=== PATIENT | male | born 1955 | race Caucasian/White ===

== ENCOUNTER 2019-07-22 13:02 | Emergency (ER) | payer OTHER, MEDICAID, SELFPAY ==
[2019-07-22 13:06] VITALS: BP 160/89; PULSE 110; RESP 20; TEMP 36.6; O2SAT 98
--- NOTE | 2019-07-22 13:11 | DI.RAD.S_ITS ---
PROCEDURE: XR FINGER RT MIN 2V INDICATIONS: concern for infection r/t prior amputation, pain/swelling TECHNIQUE: AP hand, 2 views of the right first finger(s) acquired. COMPARISON: None. FINDINGS: Bones: No fractures or dislocations. No suspicious bony lesions. No osseous erosive changes. No periosteal reaction. The first distal phalange is absent compatible with reported prior amputation. Soft tissues: No suspicious soft tissue calcifications. IMPRESSION: No alli evidence of osteomyelitis. Plain film radiographs can be insensitive to osteomyelitis during the initial 15 days of the disease process. If there is clinical concern for osteomyelitis, then three-phase nuclear medicine bone scan should be considered for further evaluation. Dictated by: Norma Reardon MD, PhD on 07/22/2019 at 12:46 Approved by: Norma Reardon MD, PhD on 07/22/2019 at 12:47
--- NOTE | 2019-07-22 13:33 | PC.NURSE ---
Pt c/o white area on end of previously amputated right thumb. Pt states it has been there for 2 months. No fever. No overt swelling.
--- NOTE | 2019-07-22 13:46 | ED.EXTPRO ---
HPI - Extremity Problem <Sebastian Stout [facility] - Last Filed: 07/22/19 21:32> General Chief complaint: Extremity Problem,Nontraumatic Stated complaint: Lump in right thumb Time Seen by Provider: 07/22/19 13:22 Source: patient Mode of arrival: Ambulatory Limitations: no limitations History of Present Illness HPI Narrative: This is a 63-year-old gentleman, prior smoker, who presents to ED with foreign body sensation and discomfort on right thumb pad for last 3 months. Patient denies fever, redness, swelling, purulent discharge, warmth on affected site. Patient right dominant hand but writes with left hand. Patient thought he had a sliver on affected site and had tried to remove it by soaking in Epsom salt and picking on it but patient continues to feel discomfort when it is pressed hard on thumb pad and callus and would like an evaluation. Related Data Allergies Allergy/AdvReac Type Severity Reaction Status Date / Time Sulfa (Sulfonamide Allergy Verified 07/22/19 13:13 Antibiotics) Tetracyclines Allergy Verified 07/22/19 13:13 Review of Systems <Sebastian Stout [facility] - Last Filed: 07/22/19 21:32> Review of Systems ROS Unobtainable: All systems reviewed & are unremarkable except as noted in HPI and below Patient History <KARRIE BackP - Last Filed: 07/22/19 21:32> Substance Use Type: marijuana Exam <Sebastian Argelia [facility] Last Filed: 07/22/19 21:32> Narrative Exam Narrative: General appearance: well developed, well nourished, in no acute distress. Head: normocephalic, atraumatic, no scalp lesions, non-tender. Eye: pupil equal, round. EOMI. Nose: nares patent. Oral: mucosa moist. Neck/Thyroid: neck supple, full range of motion, no visible masses. Skin: Right thumb pad with small calleous growth. No erythema, edema, warmth, drainage noted. Heart: no clubbing, no cyanosis, no edema. Lungs: Breathing even and unlabored. No stridor. No accessory muscles used. Chest: normal shape and expansion. Abdomen: non-obese, non-distended. Neurologic: alert and oriented. Cognitive exam, [employer] and PNS grossly intact on informal exam. Psych: good eye contact, normal affect. 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) Details: normal to inspection, normal capillary refill, neurosensory exam normal, tendon exam normal, normal ROM of fingers and no swelling; no tenderness, no unusual warmth, no abrasions and no lacerations <Rossana Frost MD - Last Filed: 07/23/19 07:53> Initial Vital Signs Initial Vital Signs: Vital Signs Temperature 97.9 F 07/22/19 13:06 Pulse Rate 110 H 07/22/19 13:06 Respiratory Rate 20 07/22/19 13:06 Blood Pressure 160/89 H 07/22/19 13:06 Pulse Oximetry 98 07/22/19 13:06 Course <KYE Back - Last Filed: 07/22/19 21:32> Orders Ordered: ED Orders 07/22/19 13:11 XR finger RT min 2V Stat Vital Signs Vital signs: Vital Signs - 8 hr 07/22/19 13:06 Temperature 97.9 F Pulse Rate 110 H Respiratory Rate 20 Blood Pressure 160/89 H Pulse Oximetry 98 <Rossana Frost MD - Last Filed: 07/23/19 07:53> Orders Ordered: ED Orders 07/22/19 13:11 XR finger RT min 2V Stat Vital Signs Vital signs: Vital Signs - 8 hr 07/22/19 13:06 Temperature 97.9 F Pulse Rate 110 H Respiratory Rate 20 Blood Pressure 160/89 H Pulse Oximetry 98 MDM - Extremity (Nontraumatic) <KYE Back - Last Filed: 07/22/19 21:32> Differential Diagnosis Differential diagnosis: Likely other (Foreign body on right thumb pad) Medical Records Attestation: I reviewed the patient's medical records. Imaging Data XR- finger R thumb: Radiologist's impression: [address] [address] XRay Report Signed Patient: Moy LloydMR#: [id number] : 6Acct:[id number] Age/Sex: 63 / MDate of Service: 07/22/19 Loc: ED Accession Number: [id number] Procedure: XR finger RT min 2V Ordering Provider: Sebastian Stout PROCEDURE: XR FINGER RT MIN 2V INDICATIONS: concern for infection r/t prior amputation, pain/swelling TECHNIQUE: AP hand, 2 views of the right first finger(s) acquired. COMPARISON: None. FINDINGS: Bones: No fractures or dislocations. No suspicious bony lesions. No osseous erosive changes. No periosteal reaction. The first distal phalange is absent compatible with reported prior amputation. Soft tissues: No suspicious soft tissue calcifications. IMPRESSION: No alli evidence of osteomyelitis. Plain film radiographs can be insensitive to osteomyelitis during the initial 15 days of the disease process. If there is clinical concern for osteomyelitis, then three-phase nuclear medicine bone scan should be considered for further evaluation. Dictated by: Norma Reardon MD, PhD on 07/22/2019 at 12:46 Approved by: Norma Reardon MD, PhD on 07/22/2019 at 12:[address] [facility] Narrative Medical decision making narrative: This is 63-year-old male who presents to ED with possible foreign body on his right thumb pad for last 3 months or so. Physical exam does not show signs for infection or cellulitis. Patient reports he was concerned since one of his friends had a bad infection on his arm and was concerned and would like a evaluation. I discussed findings of no significant signs of infection per physical exam and there is no indication of osteomyelitis or obvious visible foreign body per x-ray test. Explained to patient that it may take time but usually the body reacts and migrates foreign bodies to surface to remove from the body. We discussed return precautions and patient verbalized understanding and appreciate the assurance. Discharge Plan Departure Patient Disposition: Home Clinical Impression: Foreign body (FB) in soft tissue Discharge Date/Time: 07/22/19 14:00 Instructions: DI for Removal of Foreign Body From Skin Activity Restrictions/Additional Instructions: You have been diagnosed with [possible foreign body on right thumb pad. Today does not show suspicious bony lesions or erosion changes. No obvious foreign body has been seen per x-ray test. However, usually your body is trying to remove foreign body by pushing this up near surface as time goes by and it is a good idea not to manipulate this at this time. ]. What to do: *Take your medications as directed. No new medications to go home with from today's visit *Follow up with your primary care provider in 2-3 days, call for an appointment. Let them know you were seen in the ED and that we asked you to be seen in follow up. *Return to ED if you have any new, worsening, or concerning symptoms, such as [redness, swelling, purulent discharge, fever, warmth, increasing pain as these are signs of infection]. Referrals: Josesito Mai [Non-Staff] -
== END 2019-07-22 14:00 | disposition home or self-care (01) ==
PROVIDERS: Emergency Provider Nurse Practitioner Family
DX: M79.5 Residual foreign body in soft tissue (principal)
CPT/HCPCS: 73140; 99282; 99283